=== PATIENT | female | born 1975 | race African-American/Black ===

== ENCOUNTER 2017-12-09 10:34 | Emergency (ER) | payer MEDICAID, OTHER ==
[~2017-12-09] VITALS: Ht 160 cm; Wt 54.0 kg
[2017-12-09] MEDS ORDERED: KETOROLAC 30MG/ML VIAL IM ONE (11:30)
[2017-12-09 14:05] VITALS: BP 107/65
== END 2017-12-09 14:14 | disposition home or self-care (01) ==
LOC: ER 11:32
DX: S46.911A Strain of unspecified muscle, fascia and tendon at shoulder and upper arm level, right arm, initial encounter (principal); Z98.890 Other specified postprocedural states; V43.52XA Car driver injured in collision with other type car in traffic accident, initial encounter; Y93.89 Activity, other specified; Y92.488 Other paved roadways as the place of occurrence of the external cause
CPT/HCPCS: 71045; 81025; 96372; 99283; J1885; Z7610